=== PATIENT | female | born 1945 | race Caucasian/White ===

== ENCOUNTER → 2016-12-24 | Outpatient (CLI) | payer MEDICARE | LOC: MAMMO 08:00 | PROVIDERS: ATTEND Family Medicine | DX: Z12.31 Encounter for screening mammogram for malignant neoplasm of breast (principal) ==

== ENCOUNTER → 2017-01-20 | Outpatient (CLI) | payer MEDICARE, OTHER ==
--- NOTE | 2017-01-20 14:41 | MAM ---
EXAM DESCRIPTION: Diagnostic Mammo,Bilateral CLINICAL HISTORY: 71 yearsFemaleABNORMAL MAMMO. Bilateral breast calcifications. COMPARISON: 2-D digital bilateral screening examination 12/24/2015. TECHNIQUE: Bilateral digital orthogonal mammographic imaging of the regions of interest. CAD was utilized. FINDINGS: A group of pleomorphic heterogeneous microcalcifications is noted at the 900 clock position of the middle third of the left breast, approximately 6 cm from the nipple. No definite associated mass. Again noted is bilateral dense fibroglandular tissue associated with scattered calcifications. IMPRESSION: BI-RADS CATEGORY: 4A - LOW SUSPICION FOR MALIGNANCY. Surgical consultation and tissue diagnosis should be considered. The results and follow-up were discussed in person with the patient. Written communication explaining the results and followup will be mailed to the patient and referring care provider. CRITICAL COMMUNICATION: The critical value was discussed directly by phone with Dr. Noel at approximately 1435 hours, on January 20, 2017. Electronically signed by: Neno West MD 01/20/2017 2:40 PM CDT Workstation: [id number]
== END | disposition home or self-care (01) ==
LOC: MAMMO 01-15 13:14
PROVIDERS: ATTEND Family Medicine
DX: R92.8 Other abnormal and inconclusive findings on diagnostic imaging of breast (principal)

== ENCOUNTER → 2017-02-03 | Outpatient (CLI) | payer OTHER | END | disposition home or self-care (01) | LOC: LAB.O 11:09 | PROVIDERS: ATTEND Surgery | DX: Z01.812 Encounter for preprocedural laboratory examination (principal); Z01.810 Encounter for preprocedural cardiovascular examination ==

== ENCOUNTER 2017-02-05 05:46 | Day surgery (SDC) | payer MEDICARE, OTHER ==
[2017-02-05] MEDS ORDERED: PROPOFOL 200 MG/20 ML VIAL IV ONE (07:00)
[2017-02-05] MEDS ORDERED: LACTATED RINGERS 1,000 ML ONE (07:06)
[2017-02-05] MEDS ORDERED: ceFAZolin SODIUM 1 GM VIAL ONE (07:06)
[2017-02-05] MEDS ORDERED: SODIUM CHL 0.9% 100ML MINI-BAG 100 ML IVPB ONE (07:06)
[2017-02-05] MEDS ORDERED: SODIUM BICARBONATE VIAL 50 MEQ/50 ML VIAL ONE (07:18)
[2017-02-05] MEDS ORDERED: LIDOCAINE 1% 50 ML VIAL INJ ONE (07:18)
--- NOTE | 2017-02-05 08:45 | RAD ---
EXAM DESCRIPTION: Chest,2 Views CLINICAL HISTORY: 71 years Female, Pre op before Needle Loc COMPARISON: None Available TECHNIQUE: PA/lateral FINDINGS: There is no cardiac or pulmonary abnormality. The lungs are clear. There is no effusion. IMPRESSION: 1. Normal two-view chest. Electronically signed by: Santana Villeda MD 02/05/2017 8:43 AM CDT
--- NOTE | 2017-02-05 10:46 | MAM ---
EXAM DESCRIPTION: Breast-Needle Localization Lt CLINICAL HISTORY: 71 years FemaleABN MAMMO COMPARISON: Diagnostic 2-D digital left breast mammogram, 01/20/2017. TECHNIQUE: The procedure was explained to the patient with risks and benefits. The patient gave verbal and written consent. The area for localization was identified in the posterior third of the left breast at the 900 clock position, approximately 5 cm from the lateral skin surface. The patient was placed in the digital mammographic unit in the lateral medial position, utilizing the special compression paddle with localizing window. Lateral medial image shows the targeted group of microcalcifications. Sterile preparation. Intradermal injection of sodium bicarbonate and standard strength Xylocaine. The 5 mm Inoappss needle wire localization system was introduced through the paddle window into the lateral left breast. Repeat LM image, with needle in place. The breast was moved into the craniocaudal position; repeat images after adjustment showing proper needle depth. Continuing sterile technique, the needle was withdrawn, leaving hook wire in place. Repeat CC image. Repeat LM image with wire only. The hard copy images were labeled for surgical guidance. The patient tolerated the procedure well with no immediate complications. FINDINGS: The CC and LM 2-D digital full field images show the hook of the wire slightly anterior to the group of targeted microcalcifications at the 900 clock position of the posterior third of the left breast IMPRESSION: Successful mammographic guided needle wire localization of posterior lateral left breast group of microcalcifications. The procedure results and images were reviewed with Dr. Goldsmith following localization, prior to excision biopsy. Digital mammography of the biopsy specimen to follow excisional biopsy. Electronically signed by: Neno West MD 02/05/2017 10:45 AM CDT
--- NOTE | 2017-02-05 11:09 | MAM ---
EXAM DESCRIPTION: Breast Surgical Specimen CLINICAL HISTORY: 71 yearsFemaleABN MAMMO COMPARISON: Mammographic guided, needle wire localization of posterior lateral left breast today. TECHNIQUE: 2-D Digital mammography of left breast biopsy specimen. One image recorded. FINDINGS: The left breast biopsy specimen contains the targeted group of microcalcifications seen on today's procedure images and also seen on images from previous examinations. These are in the vicinity of the wire hook, associated with dense fibroglandular tissue. Heterogeneously and pleomorphism are again noted in these microcalcifications. A second group of microcalcifications also associated with dense fibroglandular tissue, are seen on the margin of the specimen more distant from the hook. These microcalcifications are more rounded and uniform. The hook is within the specimen. IMPRESSION: Successful, digital mammographic guided, needle wire localization of targeted group of microcalcifications in the left breast, with an additional group of microcalcifications also present in the biopsy specimen. The targeted group of microcalcifications are adjacent to the wire hook with the second group more peripheral. Electronically signed by: Neno West MD 02/05/2017 11:08 AM CDT
--- NOTE | 2017-02-05 11:21 | OP ---
DATE OF PROCEDURE: 02/05/17 PREOPERATIVE DIAGNOSIS: 1. Abnormal left mammogram with new indeterminate calcifications. POSTOPERATIVE DIAGNOSIS: 1. Abnormal left mammogram with new indeterminate calcifications, pending pathology. PROCEDURE: 1. Excision, left breast lesion after needle localization. SURGEON: Marco Goldsmith MD. AVIONICS TECHNICIAN: None. ANESTHESIA: Local infiltration of 1% lidocaine with bicarb and IV sedation by Anesthesia. INDICATION: The patient is a 71-year-old female who on mammography, new calcifications were identified. These were indeterminate in nature and after the risks, benefits and alternatives to the procedure including stereotactic excision versus open biopsy after needle localization were discussed, the patient was brought to the Surgical Suite today for excision of the lesion after needle localization in Radiology. FINDINGS: The radiograph revealed the calcifications within the specimen. PROCEDURE: After the needle localization was performed in Radiology, the patient was brought to the Surgical Suite and prepped and draped in the usual sterile manner. A surgical time-out was taken. A curvilinear incision was fashioned in the upper outer quadrant of the breast, first with a marking pen and then with infiltration of anesthesia. The skin was incised with a knife and then dissection was carried down deep into the breast using electrocautery. The wire was identified and transected, then the tissue medial, lateral, superior, inferior and deep to the hook area of the wire was excised using electrocautery. The wound was irrigated copiously with saline. Hemostasis was obtained using electrocautery. When the results of the radiologic exam were performed, the wound was closed in two layers with the subcutaneous tissues reapproximated with interrupted 3-0 Vicryl and the skin edges approximated with 4-0 Vicryl subcuticular sutures, benzoin and Steri-Strips. A sterile pressure dressing was applied. The patient was awakened and taken back to the Ambulatory Unit in stable condition. Estimated blood loss was less than 25 mL. All sponge, needle and instrument counts were correct. [facility][id number] [facility]
[2017-02-05 16:07] VITALS: BP 179/91; TEMP 97.9; O2SAT 99
== END 2017-02-05 12:00 | disposition home or self-care (01) ==
LOC: AMB 05:46
PROVIDERS: ATTEND Surgery
DX: R92.1 Mammographic calcification found on diagnostic imaging of breast (principal); D24.2 Benign neoplasm of left breast; I10 Essential (primary) hypertension; E03.9 Hypothyroidism, unspecified; M81.0 Age-related osteoporosis without current pathological fracture; N81.11 Cystocele, midline; Z79.899 Other long term (current) drug therapy
CPT/HCPCS: 00400; 19120; 71020; 76098; 88305; 88341; 88342; J0690; J3490; J7050; J7120

== ENCOUNTER → 2017-06-05 | Outpatient (CLI) | payer OTHER | END | disposition home or self-care (01) | LOC: GMAJ 12:32 | PROVIDERS: ATTEND Family Medicine | DX: E03.9 Hypothyroidism, unspecified (principal) ==

== ENCOUNTER → 2017-07-03 | Outpatient (CLI) | payer OTHER ==
--- NOTE | 2017-07-06 08:59 | US ---
EXAM DESCRIPTION: Thyroid CLINICAL HISTORY: 72 years Female, NODULE COMPARISON: None. TECHNIQUE: Real-time sonographic images of the thyroid are obtained. FINDINGS: The right lobe thyroid measures 5.8 x 2.4 x 2.7 cm. The left lobe measures 5.8 x 2.0 x 1.9 cm. The isthmus measures 5 mm in thickness. Thyroid is diffusely heterogeneous in echogenicity. There is a poorly circumscribed mostly isoechoic solid nodule in the mid right lobe of the thyroid measuring 2.7 x 1.5 x 1.6 cm without abnormal calcifications. There is a well-circumscribed mostly isoechoic solid nodule that is wider than tall in the anterior upper pole of the right lobe measuring 2.5 x 1.0 x 1.2 cm without abnormal calcifications. No discrete cystic or solid nodules of the left lobe thyroid are seen. No increased vascularity. IMPRESSION: There are 2 solid nodules in the right lobe of the thyroid measuring 2.7 and 2.5 cm greatest diameter. Consider fine-needle aspiration of these largest 2 nodules based on size if not already performed. Electronically signed by: Malachi Carpenter MD 07/06/2017 8:58 AM SECONDARY SET UP MAN
== END ==
LOC: US 10:45
PROVIDERS: ATTEND Family Medicine
DX: E04.1 Nontoxic single thyroid nodule (principal)

== ENCOUNTER → 2017-08-04 | Outpatient (CLI) | payer OTHER ==
--- NOTE | 2017-08-04 15:40 | MAM ---
DIAGNOSTIC LEFT MAMMOGRAMS HISTORY: Follow-up for biopsy and left breast COMPARISON: Diagnostic mammograms of January 20, 2017. Needle localization procedure of left breast on February 05, 2017. Postbiopsy follow-up on February 19, 2017. TECHNIQUE: Digital 2-D mammograms , and 3-D tomosynthesis,1 of left breast were performed in CC and MLO orientations. Mammo CAD analysis also performed. FINDINGS: Heterogeneously dense fibroglandular tissue identified in left breast. 4 mild architectural distortion in upper outer quadrant of left breast at mid depth, is consistent with site of prior biopsy. Microcalcifications previously seen in this area are no longer present, consistent with capture during biopsy. Benign microcalcifications scattered in remainder of left breast. No obvious mass lesion or concerning microcalcifications or additional architectural distortion detected in remainder of left breast. IMPRESSION: No mammographic evidence of malignancy in left breast. BI-RADS: 2, benign findings. Follow-up: Annual surveillance recommended Electronically signed by: Suresh Renner MD 08/04/2017 3:39 PM [employer] MACHINE OPERATOR
== END ==
LOC: US 11:09
PROVIDERS: ATTEND Surgery
DX: R92.0 Mammographic microcalcification found on diagnostic imaging of breast (principal)

== ENCOUNTER → 2017-11-11 | Outpatient (CLI) | payer OTHER | LOC: GMAJ 16:32 | PROVIDERS: ATTEND Family Medicine | DX: E03.9 Hypothyroidism, unspecified (principal) ==

== ENCOUNTER → 2018-11-11 | Outpatient (CLI) | payer MEDICARE, OTHER ==
--- NOTE | 2018-11-22 13:46 | MAM ---
EXAM DESCRIPTION: 3D Screening BILATERAL : Digital Mammography. CLINICAL HISTORY: 73 years Female SCREEN no complaints. No personal or family history of breast cancer. Prior benign left breast biopsy. Hysterectomy over 15 years ago. No HRT. Childbirth.. Lifetime risk of developing breast cancer (Tyrer-Cuzick model)(%): Not calculated COMPARISON: Diagnostic left breast digital tomosynthesis 08/04/2017. Bilateral screening 2-D mammography 12/24/2016 TECHNIQUE: Bilateral CC and MLO projection full-field images, digital tomosynthesis mammographic technique. Bilateral digital 2-D full-field MLO images. CAD not available for tomosynthesis or 2-D images. FINDINGS: The breast parenchymal density pattern is: Scattered areas of fibroglandular density. No skin thickening or nipple retraction. Again noted is dense fibroglandular tissues in the middle third of the upper breast bilaterally. Bilateral lymph nodes and solitary microcalcifications. Cluster of heterogeneous calcifications in the upper posterior third of the left breast, 12:00-1:00 position, have been removed. No new focal, stellate mass or density, focal asymmetry , and no suspicious microcalcifications bilaterally. Stable mammograms compared to prior study. Taking into account, differences in mammographic technique. IMPRESSION: Benign exam. BIRAD CATEGORY: 2 BENIGN FINDINGS. RECOMMENDATIONS: FOLLOW UP: Routine digital bilateral mammographic screening, one year interval from October 2018. Written communication explaining the IMPRESSION and follow-up, will be mailed to the patient and referring health care provider. According to the [employer], yearly mammograms are recommended starting at age 40 and continuing as long as a woman is in good health. Any breast change noted on a breast self-exam should be reported promptly to the patient's healthcare provider. Breast MRI is recommended for women with an approximately 20-25% or greater lifetime risk of breast cancer, including women with a strong family history of breast or ovarian cancer and women who have been treated for Hodgkin's disease. A negative mammographic report should not delay tissue diagnosis in patients with significant clinical history or physical findings. Extremely dense breast tissue limits the sensitivity of digital mammography. Electronically signed by: Neno West MD 11/22/2018 1:43 PM CDT
== END ==
LOC: MAMMO 13:58
PROVIDERS: ATTEND Family Medicine
DX: Z12.31 Encounter for screening mammogram for malignant neoplasm of breast (principal)

== ENCOUNTER → 2019-04-18 | Outpatient (CLI) | payer OTHER | END | disposition home or self-care (01) | LOC: GMAJ 10:38 | PROVIDERS: ATTEND Family Medicine | DX: E03.9 Hypothyroidism, unspecified (principal) ==

== ENCOUNTER → 2019-10-20 | Outpatient (CLI) | payer OTHER | LOC: GMAJ 11:52 | PROVIDERS: ATTEND Family Medicine | DX: E03.8 Other specified hypothyroidism (principal); I10 Essential (primary) hypertension ==

== ENCOUNTER 2020-04-13 05:17 | Day surgery (SDC) | payer OTHER ==
[2020-04-13] MEDS ORDERED: PROPOFOL 200 MG/20 ML VIAL IV ONE (05:18)
[2020-04-13] MEDS ORDERED: LIDOCAINE 1% 10 ML VIAL INJ ONE (05:18)
[2020-04-13] MEDS ORDERED: LACTATED RINGERS 1,000 ML ONE (06:36)
--- NOTE | 2020-04-13 10:09 | OP ---
DATE OF PROCEDURE: 04/13/20 PREOPERATIVE DIAGNOSIS: 1. Screening colonoscopy. POSTOPERATIVE DIAGNOSIS: 1. Screening colonoscopy. PROCEDURE: 1. Colonoscopy. SURGEON: Puma Alva MD ANESTHESIA: General. FINDINGS: Normal colon. COMPLICATIONS: None. PLAN: Evaluate health status and risk status in 10 years for possible additional colonoscopy. PROCEDURE: Digital rectal exam was normal. The colonoscope was inserted and with minimal difficulty went all the way to the cecum. Upon withdrawal, mucosal surfaces appeared normal. On a good exam with adequate prep, no polyps were identified. Small internal hemorrhoids, non-thrombosed. The patient is 74 years old and likely her last necessary scope unless any problems should arise given current recommendations. However, her health status should always be considered and life expectancy. [facility][id number] [facility]
[2020-04-13 10:24] VITALS: BP 149/78; TEMP 97.2; O2SAT 98
== END 2020-04-13 10:00 | disposition home or self-care (01) ==
LOC: AMB 05:17
PROVIDERS: ATTEND Surgery
DX: Z12.11 Encounter for screening for malignant neoplasm of colon (principal); K64.8 Other hemorrhoids; I10 Essential (primary) hypertension; E78.00 Pure hypercholesterolemia, unspecified; E03.9 Hypothyroidism, unspecified; M81.0 Age-related osteoporosis without current pathological fracture; I65.29 Occlusion and stenosis of unspecified carotid artery; Z86.010 Personal history of colon polyps; Z90.710 Acquired absence of both cervix and uterus; Z79.899 Other long term (current) drug therapy
CPT/HCPCS: 00812; G0105; J3490; J7120

== ENCOUNTER 2020-04-23 11:40 | Outpatient (CLI) | payer MEDICARE, OTHER ==
[2020-04-24 10:57] VITALS: BP 120/64; TEMP 97.5; O2SAT 97
== END 2020-04-24 12:30 | disposition home or self-care (01) ==
LOC: INFRM 11:40
PROVIDERS: ATTEND Family Medicine
DX: U07.1 COVID-19 (principal); I10 Essential (primary) hypertension; Z23 Encounter for immunization